=== PATIENT | male | born 2000 | race Caucasian/White ===

== ENCOUNTER 2024-05-24 12:29 | Emergency (ER) | payer OTHER ==
[~2024-05-24] VITALS: Ht 172.7 cm; Wt 55.9 kg
[~2024-05-24 12:29] MED LIST: CYCL-707 PO; HYDR-3363 PO
[2024-05-24 14:36] LABS: BASO % 0.4 % (0.0-1.0); EOS # 0.1 10^3/uL (0.0-0.5); HEMATOCRIT 48.4 % (42.0-52.0); LYMPH # 1.6 10^3/uL (1.5-5.0); LYMPH % 22.5 % (24.0-44.0); MEAN CORPUSCULAR HEMOGLOBIN 29.6 pg (27.0-33.0); MEAN CORPUSCULAR HGB CONC 34.9 g/dl (32.0-36.5); MEAN CORPUSCULAR VOLUME 84.8 fl (80.0-96.0); MONO # 0.7 10^3/uL (0.0-0.8); MONO % 10.2 % (2.0-8.0); NEUTROPHILS # 4.5 10^3/uL (1.5-8.5); NEUTROPHILS % 65.8 % (36.0-66.0); PLATELET COUNT, AUTOMATED 286 10^3/uL (150-450); RED BLOOD COUNT 5.71 10^6/uL (4.30-6.10); WHITE BLOOD COUNT 6.9 10^3/uL (4.0-10.0)
[2024-05-24 14:38] LABS: HEMOGLOBIN 16.9 g/dl (13.5-17.5)
[2024-05-24 14:42] LABS: ERYTHROCYTE SEDIMENTATION RATE 5 mm/hr (0-15)
[2024-05-24 14:53] LABS: BLOOD UREA NITROGEN 11 MG/DL (9-23); CALCIUM LEVEL 9.5 MG/DL (8.5-10.1); CARBON DIOXIDE LEVEL 29 MMOL/L (20-31); CHLORIDE LEVEL 105 MMOL/L (98-107); CREATININE FOR GFR 0.84 MG/DL (0.70-1.30); GLOMERULAR FILTRATION RATE > 60.0 (>60); GLUCOSE, FASTING 93 MG/DL (60-100); POTASSIUM SERUM 3.9 MMOL/L (3.5-5.1); SODIUM LEVEL 137 MMOL/L (136-145)
[2024-05-24] MEDS ORDERED: PROHANCE 279.3MG/ML 15ML VIAL As Ordered ONE (16:17)
[2024-05-24 17:53] VITALS: BP 131/77; TEMP 97.2; O2SAT 98
== END 2024-05-24 18:16 | disposition home or self-care (01) ==
LOC: M ED 12:29
DX: H53.2 Diplopia (principal); F41.9 Anxiety disorder, unspecified; F90.0 Attention-deficit hyperactivity disorder, predominantly inattentive type; Z79.899 Other long term (current) drug therapy
CPT/HCPCS: 36415; 70553; 80048; 85025; 85652; 99284; A9576

== ENCOUNTER → 2024-06-19 | Outpatient (CLI) | payer OTHER | LOC: M PLARAD 11:00 | PROVIDERS: ATTEND Student in an Organized Health Care Education/Training Program | DX: M54.50 Low back pain, unspecified (principal) ==

== ENCOUNTER 2024-06-26 15:14 | Emergency (ER) | payer OTHER ==
[~2024-06-26] VITALS: Ht 172.7 cm; Wt 53.4 kg
[2024-06-26] MEDS: GABAPENTIN 100 MG CAP PO ONE (20:58)
[2024-06-26 22:16] LABS: Trichomonas vaginalis (AMP) NOT DETECTED (NEGATIVE)
[2024-06-26] MEDS ORDERED: GABA-1171 PO (22:24)
[2024-06-26 22:29] VITALS: BP 153/95; TEMP 98.5; O2SAT 98
[2024-06-26 22:39] LABS: GC DNA AMPLIFICATION NEGATIVE (NEGATIVE)
== END 2024-06-26 22:38 | disposition home or self-care (01) ==
LOC: M ED 15:14
DX: M79.604 Pain in right leg (principal); Z79.899 Other long term (current) drug therapy

== ENCOUNTER → 2024-08-14 | Outpatient (CLI) | payer OTHER ==
[~2024-08-14] MED LIST changes: +GABA-1171 PO
== END ==
LOC: M PLARAD 08:21
PROVIDERS: ATTEND Psychiatry & Neurology Neurology
DX: H53.2 Diplopia (principal)

== ENCOUNTER → 2024-08-14 | Outpatient (REF) | LOC: M PLAIMG 10:16 | PROVIDERS: ATTEND Internal Medicine | DX: M54.50 Low back pain, unspecified (principal) ==